=== PATIENT | male | born 1985 | race Hispanic/Latino ===

== ENCOUNTER 2017-06-14 17:18 | Inpatient (IN) | payer MEDICARE ==
[~2017-06-14] VITALS: Ht 170.2 cm; Wt 58.0 kg
[~2017-06-14 17:18] MED LIST: CARV3.12 PO; DOXA1TAB2 PO; LOSA50TA37 PO; METO50TA18 PO
[2017-06-14] MEDS ORDERED: PROMETHAZINE HCL 25 MG/ML 1ML AMPULE IM ONE (17:41)
[2017-06-14] MEDS ORDERED: LORAZEPAM 2 MG/ML 1 ML VIAL ONE (17:42)
[2017-06-14 17:45] LABS: BASOPHILS % (AUTO) 0.8 % (0.0-5.0); EOSINOPHILS % (AUTO) 1.1 % (0.0-8.0); LYMPHOCYTES % (AUTO) 33.7 % (21.0-51.0); MEAN CORPUSCULAR HEMOGLOBIN 18.7 pg (27.0-33.0); MEAN CORPUSCULAR HGB CONC 29.6 g/dL (32.0-36.0); MEAN CORPUSCULAR VOLUME 63.2 fL (79-99); MONOCYTES % (AUTO) 9.2 % (3.0-13.0); NEUTROPHILS % (AUTO) 55.2 % (40.0-77.0); NUCLEATED RED BLOOD CELLS 0.4 % (0.0-0.19); PLATELET COUNT (AUTO) 462 K/uL (130-400); RED BLOOD CELL COUNT(AUTO) 3.14 MIL/uL (4.50-6.20); RED CELL DISTRIBUTION WIDTH 22.2 % (11.0-15.5); WHITE BLOOD COUNT (AUTO) 8.1 K/uL (4.8-10.8)
[2017-06-14 17:51] LABS: CARBON DIOXIDE 25 mmol/L (21-32); CHLORIDE 105 mmol/L (101-111); CREATININE 0.8 mg/dL (0.5-1.5); GLOMERULAR FILTR. RATE CALC 120 mL/min (>60); GLUCOSE,RANDOM 129 mg/dL (70-105); POTASSIUM 3.7 mmol/L (3.5-5.1); SODIUM SERUM 143 mmol/L (136-145); UREA NITROGEN, BLOOD 17 mg/dL (7-18)
[2017-06-14] MEDS ORDERED: HYDROMORPHONE 1 MG/1 ML AMP ONE (17:51)
[2017-06-14 17:54] LABS: HEMATOCRIT 19.9 % (42-54)
[2017-06-14 17:56] LABS: ALANINE AMINOTRANSFERASE 18 U/L (12-78); ALBUMIN 3.6 g/dL (3.5-5.0); ASPARTATE AMINOTRANSFERASE 13 U/L (10-37); BILIRUBIN,TOTAL 0.2 mg/dL (0.2-1.0)
[2017-06-14 17:57] LABS: LIPASE < 50 U/L (114-286)
[2017-06-14] MEDS ORDERED: ONDANSETRON HCL MDV 20ML 2 MG/ML VIAL IVP PRN (19:15)
[2017-06-14 20:50] VITALS: BP 154/82
[2017-06-14] MEDS ORDERED: RISPERIDONE 1 MG TABLET PO SCH (21:00)
[2017-06-14] MEDS: MORPHINE SULFATE 15 MG TABLET.SA PO PRN (21:35)
[2017-06-14] MEDS ORDERED: PROM25TA7 PO (21:39)
[2017-06-14] MEDS ORDERED: HYDROMORPHONE 1 MG/1 ML AMP IVP ONE (22:30)
[2017-06-14] MEDS ORDERED: SODIUM CHLORIDE 0.9% 250 ML IV ONE (22:40)
[2017-06-14] MEDS ORDERED: NICOTINE 21 MG/ 24 HR PATCH TD ONE (23:00)
[2017-06-14] MEDS: LORAZEPAM 1 MG TABLET PO PRN (23:11)
[2017-06-14 23:35] VITALS: BP 125/78
[2017-06-15] MEDS: HYDROMORPHONE 1 MG/1 ML AMP IVP PRN ×2 (03:01→05:58)
[2017-06-15] MEDS: LORAZEPAM 1 MG TABLET PO PRN ×2 (03:01→09:27)
[2017-06-15 03:05] VITALS: BP 128/77
[2017-06-15] MEDS ORDERED: NALOXONE HCL 0.4 MG/1 ML ML IVP SCH (03:15)
[2017-06-15] MEDS ORDERED: ACETAMINOPHEN 325 MG TAB PO PRN (04:00)
[2017-06-15] MEDS ORDERED: ACETAMINOPHEN 325 MG TAB ONE (04:02)
[2017-06-15] MEDS ORDERED: SENN-175 PO (05:57)
[2017-06-15] MEDS ORDERED: LEVE750T10 PO (05:57)
[2017-06-15] MEDS ORDERED: MORP30TA71 PO (05:57)
[2017-06-15] MEDS ORDERED: PANT40TA25 PO (05:57)
[2017-06-15] MEDS ORDERED: LORA1TAB3 PO (05:57)
[2017-06-15] MEDS ORDERED: ZOLP10TA6 PO (05:57)
[2017-06-15] MEDS ORDERED: SERT50TA12 PO (05:57)
[2017-06-15] MEDS ORDERED: RISP0.5T19 PO (05:57)
[2017-06-15] MEDS ORDERED: RISPERIDONE 0.5 MG TABLET PO SCH (07:30)
[2017-06-15 07:50] VITALS: BP 145/94
[2017-06-15 07:54] LABS: BASOPHILS % (AUTO) 1.2 % (0.0-5.0); HEMATOCRIT 28.3 % (42-54); LYMPHOCYTES % (AUTO) 30.1 % (21.0-51.0); MEAN CORPUSCULAR HEMOGLOBIN 20.8 pg (27.0-33.0); MEAN CORPUSCULAR HGB CONC 30.7 g/dL (32.0-36.0); MEAN CORPUSCULAR VOLUME 67.8 fL (79-99); MONOCYTES % (AUTO) 12.1 % (3.0-13.0); NEUTROPHILS % (AUTO) 55.6 % (40.0-77.0); PLATELET COUNT (AUTO) 411 K/uL (130-400); RED BLOOD CELL COUNT(AUTO) 4.18 MIL/uL (4.50-6.20); RED CELL DISTRIBUTION WIDTH 26.8 % (11.0-15.5); WHITE BLOOD COUNT (AUTO) 8.3 K/uL (4.8-10.8)
[2017-06-15 08:02] LABS: CREATININE 0.7 mg/dL (0.5-1.5); POTASSIUM 3.8 mmol/L (3.5-5.1)
[2017-06-15] MEDS ORDERED: SENNOSIDES 8.6 MG TABLET PO SCH (09:00)
[2017-06-15] MEDS ORDERED: FAMOTIDINE 20MG TAB 20 MG TAB PO ONE (09:00)
[2017-06-15] MEDS ORDERED: AMLODIPINE BESYLATE 5 MG TAB PO SCH (09:00)
[2017-06-15] MEDS: MORPHINE SULFATE 15 MG TABLET.SA PO PRN (09:27)
[2017-06-15 11:35] VITALS: BP 148/102
[2017-06-15] MEDS ORDERED: ZOLPIDEM TARTRATE 5 MG TAB PO PRN (12:00)
[2017-06-15] MEDS ORDERED: SERTRALINE HCL 50 MG TABLET PO SCH (21:00)
[2017-06-15] MEDS ORDERED: LEVETIRACETAM 500 MG TABLET PO SCH (21:00)
[2017-06-16] MEDS ORDERED: PANTOPRAZOLE SODIUM 40 MG TABLET.DR PO SCH (09:00)
== END 2017-06-15 14:20 | disposition home or self-care (01) | DRG 812 ==
LOC: EDH 17:18 → EDHIP 18:49 → 4BH 20:03
PROVIDERS: ADMIT Family Medicine; ATTEND Family Medicine
PROC: 30233N1 Transfusion of Nonautologous Red Blood Cells into Peripheral Vein, Percutaneous Approach (ICD-10-PCS; principal; 2017-06-14)
DX: D64.9 Anemia, unspecified (principal); C25.9 Malignant neoplasm of pancreas, unspecified; F12.90 Cannabis use, unspecified, uncomplicated; G40.909 Epilepsy, unspecified, not intractable, without status epilepticus; I10 Essential (primary) hypertension; Z85.07 Personal history of malignant neoplasm of pancreas; Z88.8 Allergy status to other drugs, medicaments and biological substances
CPT/HCPCS: 36415; 36430; 80048; 80053; 83690; 85025; 85060; 86850; 86870; 86900; 86901; 86905; 86922; 87040; 88313; 93005; J1170; J2060; J2550; J7030; P9016

== ENCOUNTER 2017-08-04 11:33 | Observation (INO) | payer MEDICARE ==
[~2017-08-04] VITALS: Ht 170.2 cm; Wt 56.5 kg
[~2017-08-04 11:33] MED LIST changes: +LEVE750T10 PO; +LORA1TAB3 PO; +MORP30TA71 PO; +PANT40TA25 PO; +PROM25TA7 PO; +RISP0.5T19 PO; +SENN-175 PO; +SERT50TA12 PO; +ZOLP10TA6 PO
[2017-08-04] MEDS ORDERED: LORAZEPAM 2 MG/ML 1 ML VIAL ONE (12:36)
[2017-08-04] MEDS ORDERED: SODIUM CHLORIDE 0.9% 500ML 500 ML IV ONE (12:36)
[2017-08-04 12:58] LABS: BASOPHILS % (AUTO) 0.9 % (0.0-5.0); EOSINOPHILS % (AUTO) 1.9 % (0.0-8.0); HEMATOCRIT 21.5 % (42-54); LYMPHOCYTES % (AUTO) 30.2 % (21.0-51.0); MEAN CORPUSCULAR HEMOGLOBIN 21.3 pg (27.0-33.0); MEAN CORPUSCULAR HGB CONC 29.9 g/dL (32.0-36.0); MEAN CORPUSCULAR VOLUME 71.2 fL (79-99); MONOCYTES % (AUTO) 10.2 % (3.0-13.0); NEUTROPHILS % (AUTO) 56.8 % (40.0-77.0); NUCLEATED RED BLOOD CELLS 0.5 % (0.0-0.19); PLATELET COUNT (AUTO) 413 K/uL (130-400); RED BLOOD CELL COUNT(AUTO) 3.03 MIL/uL (4.50-6.20); RED CELL DISTRIBUTION WIDTH 26.1 % (11.0-15.5)
[2017-08-04 13:19] LABS: CARBON DIOXIDE 27 mmol/L (21-32); CHLORIDE 107 mmol/L (101-111); CREATININE 0.6 mg/dL (0.5-1.5); GLOMERULAR FILTR. RATE CALC 167 mL/min (>60); GLUCOSE,RANDOM 77 mg/dL (70-105); POTASSIUM 4.4 mmol/L (3.5-5.1); SODIUM SERUM 140 mmol/L (136-145); UREA NITROGEN, BLOOD 9 mg/dL (7-18)
[2017-08-04 13:25] LABS: ALANINE AMINOTRANSFERASE 21 U/L (12-78); ALBUMIN 3.3 g/dL (3.5-5.0); AMYLASE 20 U/L (25-115); ASPARTATE AMINOTRANSFERASE 24 U/L (10-37); BILIRUBIN,TOTAL 0.1 mg/dL (0.2-1.0); TOTAL PROTEIN, SERUM 6.2 g/dL (6.0-8.3)
[2017-08-04 13:38] LABS: LIPASE < 50 U/L (114-286)
[2017-08-04] MEDS ORDERED: MORPHINE SULFATE 4 MG/1ML SYG ONE (20:51)
[2017-08-04 21:50] VITALS: BP 134/81
[2017-08-04] MEDS ORDERED: SODIUM CHLORIDE 0.9% 250 ML IV ONE (22:42)
[2017-08-04 23:00] VITALS: BP 101/64
[2017-08-05] MEDS: MORPHINE SULFATE 4 MG/1ML SYG IV PRN ×4 (01:20→21:19)
[2017-08-05 03:00] VITALS: BP 116/67
[2017-08-05 04:57] LABS: BASOPHILS % (AUTO) 1.2 % (0.0-5.0); EOSINOPHILS % (AUTO) 2.4 % (0.0-8.0); HEMATOCRIT 28.7 % (42-54); LYMPHOCYTES % (AUTO) 35.7 % (21.0-51.0); MEAN CORPUSCULAR HEMOGLOBIN 23.7 pg (27.0-33.0); MEAN CORPUSCULAR HGB CONC 32.3 g/dL (32.0-36.0); MEAN CORPUSCULAR VOLUME 73.4 fL (79-99); MONOCYTES % (AUTO) 10.4 % (3.0-13.0); NEUTROPHILS % (AUTO) 50.3 % (40.0-77.0); NUCLEATED RED BLOOD CELLS 0.4 % (0.0-0.19); PLATELET COUNT (AUTO) 449 K/uL (130-400); RED CELL DISTRIBUTION WIDTH 24.6 % (11.0-15.5); WHITE BLOOD COUNT (AUTO) 6.5 K/uL (4.8-10.8)
[2017-08-05 05:19] LABS: CREATININE 0.9 mg/dL (0.5-1.5); POTASSIUM 4.2 mmol/L (3.5-5.1)
[2017-08-05 07:00] VITALS: BP 114/78
[2017-08-05] MEDS: LORAZEPAM 1 MG TABLET PO PRN ×2 (10:01→20:36)
[2017-08-05 11:00] VITALS: BP 124/84
[2017-08-05 15:40] VITALS: BP 118/77
[2017-08-05 19:38] VITALS: BP 122/75
[2017-08-05] MEDS ORDERED: METH10TA2 PO (20:35)
[2017-08-05] MEDS ORDERED: ONDA4TAB10 PO (20:36)
[2017-08-05] MEDS ORDERED: BENZ-51 PO (20:36)
[2017-08-05] MEDS ORDERED: FENT-77 TD (20:36)
[2017-08-05] MEDS ORDERED: MORP60CA19 PO (20:36)
[2017-08-05] MEDS ORDERED: ZOLPIDEM TARTRATE 5 MG TAB PO PRN (21:45)
[2017-08-05] MEDS ORDERED: ONDANSETRON ODT 4 MG TAB PO PRN (21:45)
[2017-08-05] MEDS ORDERED: BENZONATATE 100 MG CAPSULE PO PRN (21:45)
[2017-08-06] VITALS: BP 108/66
[2017-08-06 04:00] VITALS: BP 110/71
[2017-08-06 05:31] LABS: BASOPHILS % (AUTO) 0.9 % (0.0-5.0); EOSINOPHILS % (AUTO) 2.9 % (0.0-8.0); HEMATOCRIT 28.6 % (42-54); LYMPHOCYTES % (AUTO) 35.6 % (21.0-51.0); MEAN CORPUSCULAR HEMOGLOBIN 23.1 pg (27.0-33.0); MEAN CORPUSCULAR HGB CONC 31.7 g/dL (32.0-36.0); MEAN CORPUSCULAR VOLUME 72.7 fL (79-99); MONOCYTES % (AUTO) 13.1 % (3.0-13.0); NEUTROPHILS % (AUTO) 47.5 % (40.0-77.0); NUCLEATED RED BLOOD CELLS 0.4 % (0.0-0.19); PLATELET COUNT (AUTO) 459 K/uL (130-400); RED BLOOD CELL COUNT(AUTO) 3.93 MIL/uL (4.50-6.20); RED CELL DISTRIBUTION WIDTH 24.8 % (11.0-15.5); WHITE BLOOD COUNT (AUTO) 6.4 K/uL (4.8-10.8)
[2017-08-06 05:34] LABS: CREATININE 0.9 mg/dL (0.5-1.5); POTASSIUM 4.1 mmol/L (3.5-5.1)
[2017-08-06] MEDS: MORPHINE SULFATE 4 MG/1ML SYG IV PRN (06:31)
[2017-08-06 07:00] VITALS: BP 134/74
[2017-08-06] MEDS ORDERED: PANTOPRAZOLE SODIUM 40 MG TABLET.DR PO SCH (09:00)
[2017-08-06] MEDS ORDERED: LEVETIRACETAM 250 MG TABLET PO SCH (09:00)
[2017-08-06] MEDS ORDERED: SENNOSIDES 8.6 MG TABLET PO SCH (09:00)
[2017-08-06] MEDS ORDERED: CARVEDILOL 3.125 MG TABLET PO SCH (09:00)
[2017-08-06 11:00] VITALS: BP 114/72
[2017-08-06] MEDS ORDERED: NON-FORMULARY MEDICATION 1 EACH (Fentanyl 1 EACH) TD SCH (13:45)
[2017-08-06] MEDS ORDERED: PROMETHAZINE HCL 25 MG TABLET PO PRN (14:00)
[2017-08-06 15:41] VITALS: BP 110/70
[2017-08-06] MEDS ORDERED: DOXAZOSIN MESYLATE 2 MG TABLET PO SCH (21:00)
[2017-08-06] MEDS ORDERED: MORPHINE SULFATE 15 MG TABLET.SA PO SCH (21:00)
== END 2017-08-06 17:30 | disposition home or self-care (01) ==
LOC: EDH 11:33 → EDHIP 16:30 → 3BH 21:33
PROVIDERS: ADMIT Internal Medicine Nephrology; ATTEND Internal Medicine Nephrology
DX: D50.9 Iron deficiency anemia, unspecified (principal); D13.6 Benign neoplasm of pancreas; C25.9 Malignant neoplasm of pancreas, unspecified; Z85.07 Personal history of malignant neoplasm of pancreas; Z83.3 Family history of diabetes mellitus; Z82.49 Family history of ischemic heart disease and other diseases of the circulatory system; I10 Essential (primary) hypertension; D3A.8 Other benign neuroendocrine tumors; F41.9 Anxiety disorder, unspecified
CPT/HCPCS: 36415 ×3; 80048 ×2; 80053; 82150; 83690; 85025 ×3; 86850; 86900; 86901; 86905; 86922; 96374; 96376 ×2; 99285; G0378 ×49; J2060; J2270 ×6; J7030; J7040; P9016 ×2

== ENCOUNTER 2018-07-24 08:59 | Emergency (ER) | payer MEDICARE ==
[~2018-07-24 08:59] MED LIST changes: +BENZ-51 PO; +FENT-77 TD; -LOSA50TA37 PO; +METH10TA2 PO; -METO50TA18 PO; -MORP30TA71 PO; +MORP60CA19 PO; +ONDA4TAB10 PO; -RISP0.5T19 PO; -SENN-175 PO; +SENN8.6T32 PO; -SERT50TA12 PO
[2018-07-24] MEDS ORDERED: HYDROMORPHONE 1 MG/1 ML AMP ONE ×3 (09:25→15:18)
[2018-07-24] MEDS ORDERED: PROMETHAZINE HCL 25 MG/ML 1ML AMPULE IM ONE (09:39)
[2018-07-24 09:46] LABS: BASOPHILS % (AUTO) 1.2 % (0.0-5.0); HEMATOCRIT 31.5 % (42-54); LYMPHOCYTES % (AUTO) 29.4 % (21.0-51.0); MEAN CORPUSCULAR HEMOGLOBIN 23.5 pg (27.0-33.0); MEAN CORPUSCULAR HGB CONC 30.8 g/dL (32.0-36.0); MEAN CORPUSCULAR VOLUME 76.3 fL (79-99); MONOCYTES % (AUTO) 9.5 % (3.0-13.0); NEUTROPHILS % (AUTO) 58.9 % (40.0-77.0); NUCLEATED RED BLOOD CELLS 0.1 % (0.0-0.19); PLATELET COUNT (AUTO) 426 K/uL (130-400); RED BLOOD CELL COUNT(AUTO) 4.13 MIL/uL (4.50-6.20); RED CELL DISTRIBUTION WIDTH 19.9 % (11.0-15.5); WHITE BLOOD COUNT (AUTO) 5.1 K/uL (4.8-10.8)
[2018-07-24 09:57] LABS: CARBON DIOXIDE 28 mmol/L (21-32); CHLORIDE 104 mmol/L (101-111); CREATININE 0.7 mg/dL (0.5-1.5); GLOMERULAR FILTR. RATE CALC 139 mL/min (>60); GLUCOSE,RANDOM 84 mg/dL (70-105); POTASSIUM 4.3 mmol/L (3.5-5.1); SODIUM SERUM 140 mmol/L (136-145); UREA NITROGEN, BLOOD 14 mg/dL (7-18)
[2018-07-24 10:01] LABS: ALANINE AMINOTRANSFERASE 30 U/L (12-78); ALBUMIN 3.9 g/dL (3.5-5.0); ASPARTATE AMINOTRANSFERASE 30 U/L (10-37); BILIRUBIN,DIRECT 0.1 mg/dL (0.0-0.3); BILIRUBIN,TOTAL 0.4 mg/dL (0.2-1.0); TOTAL PROTEIN, SERUM 7.1 g/dL (6.0-8.3)
[2018-07-24 10:05] LABS: LIPASE < 50 U/L (114-286)
[2018-07-24] MEDS ORDERED: HALOPERIDOL LACTATE 5 MG/ML VIAL ONE (11:04)
[2018-07-24] MEDS ORDERED: HYDROMORPHONE 1 MG/1 ML AMP IVP PRN ×2 (15:00)
[2018-07-24] MEDS ORDERED: LORAZEPAM 2 MG/ML 1 ML VIAL IVP PRN (15:00)
[2018-07-24] MEDS ORDERED: LORAZEPAM 2 MG/ML 1 ML VIAL ONE (15:17)
== END 2018-07-24 18:28 | disposition home or self-care (01) ==
LOC: EDH 08:59
DX: K52.9 Noninfective gastroenteritis and colitis, unspecified (principal); Z85.07 Personal history of malignant neoplasm of pancreas; Z88.1 Allergy status to other antibiotic agents; Z88.6 Allergy status to analgesic agent
CPT/HCPCS: 36415; 74176; 80048; 80076; 83690; 85025; 96365; 96366; 96375; 96376; 99285; J1170 ×3; J1630; J2060; J2550

== ENCOUNTER 2018-09-13 13:57 | Inpatient (IN) | payer OTHER | END 2018-09-15 19:30 | disposition hospice, home (50) | LOC: 3CH 13:57 ==

== ENCOUNTER 2019-10-25 13:14 | Emergency (ER) | payer MEDICARE ==
[~2019-10-25 13:14] MED LIST changes: +ALPR-410 PO; +BACL10TA PO; -BENZ-51 PO; -CARV3.12 PO; +DICY10CA13 PO; -DOXA1TAB2 PO; -FENT-77 TD; +HYDR5TAB14 PO; +LOPE2CAP PO; -LORA1TAB3 PO; -METH10TA2 PO; +MORP15TA70 PO; -MORP60CA19 PO; -ONDA4TAB10 PO; +SENN1TAB53 PO; -SENN8.6T32 PO; +SIME-12 PO; +SIME125C PO; +TRAZ-187 PO; +TYL3 PO; -ZOLP10TA6 PO
[2019-10-25] MEDS ORDERED: HALOPERIDOL LACTATE 5 MG/ML VIAL ONE (14:22)
[2019-10-25] MEDS ORDERED: HYDROMORPHONE HCL 0.5 MG/0.5 ML ML ONE (14:23)
[2019-10-25 14:24] LABS: BASOPHILS % (AUTO) 1.1 % (0.0-5.0); MEAN CORPUSCULAR VOLUME 63.6 fL (79-99)
[2019-10-25] MEDS ORDERED: SODIUM CHLORIDE 0.9% 1000ML 1,000 ML IV ONE (14:24)
[2019-10-25 14:30] LABS: EOSINOPHILS % (AUTO) 1.6 % (0.0-8.0); HEMATOCRIT 28.5 % (42-54); LYMPHOCYTES % (AUTO) 22.8 % (21.0-51.0); MEAN CORPUSCULAR HEMOGLOBIN 15.8 pg (27.0-33.0); MEAN CORPUSCULAR HGB CONC 24.9 g/dL (32.0-36.0); MONOCYTES % (AUTO) 13.8 % (3.0-13.0); NEUTROPHILS % (AUTO) 60.5 % (40.0-77.0); NUCLEATED RED BLOOD CELLS 2.9 % (0.0-0.19); RED BLOOD CELL COUNT(AUTO) 4.48 MIL/uL (4.50-6.20); RED CELL DISTRIBUTION WIDTH 23.7 % (11.0-15.5); WHITE BLOOD COUNT (AUTO) 8.4 K/uL (4.8-10.8)
[2019-10-25 14:31] LABS: PLATELET COUNT (AUTO) 1015 K/uL (130-400)
[2019-10-25 14:37] LABS: CARBON DIOXIDE 25 mmol/L (21-32); CHLORIDE 102 mmol/L (101-111); GLOMERULAR FILTR. RATE CALC 91 mL/min (>60); GLUCOSE,RANDOM 82 mg/dL (70-105); POTASSIUM 4.8 mmol/L (3.5-5.1); SODIUM SERUM 137 mmol/L (136-145); UREA NITROGEN, BLOOD 14 mg/dL (7-18)
[2019-10-25 14:39] LABS: INR 0.96 (0.85-1.15); PROTHROMBIN TIME 10.4 SEC (9.6-11.6)
[2019-10-25 14:41] LABS: ALANINE AMINOTRANSFERASE 33 U/L (12-78); ALBUMIN 3.8 g/dL (3.5-5.0); ASPARTATE AMINOTRANSFERASE 58 U/L (10-37); BILIRUBIN,DIRECT 0.1 mg/dL (0.0-0.3); BILIRUBIN,TOTAL 0.5 mg/dL (0.2-1.0); CREATINE KINASE, TOTAL 91 U/L (21-232); LIPASE < 50 U/L (114-286); TOTAL PROTEIN, SERUM 8.2 g/dL (6.0-8.3)
[2019-10-25 15:22] LABS: PLATELET MORPHOLOGY COMMENT MARKED INCREASE
[2019-10-25 15:37] LABS: APPEARANCE,URINE Clear (CLEAR); BILIRUBIN,URINE Negative (NEGATIVE); COLOR,URINE Yellow (YELLOW); GLUCOSE, URINE (UA) Negative (NEGATIVE); KETONES,URINE Negative (NEGATIVE); LEUKOCYTE ESTERASE ,URINE Negative (NEGATIVE); NITRATE,URINE Negative (NEGATIVE); OCCULT BLOOD,URINE Negative (NEGATIVE); PH,URINE 6.5 (5.0-8.0); PROTEIN,URINE POS 1+ mg/dL (NEGATIVE)
[2019-10-25] MEDS ORDERED: LORAZEPAM 2 MG/ML 1 ML VIAL ONE (15:40)
[2019-10-25 15:44] LABS: AMPHET/METH SCREEN,URINE NEGATIVE (NEGATIVE); BARBITURATE SCREEN, URINE NEGATIVE (NEGATIVE); BENZODIAZEPINES SCREEN,URINE NEGATIVE (NEGATIVE); CANNABINOID SCREEN,URINE POSITIVE (NEGATIVE); COCAINE SCREEN,URINE NEGATIVE (NEGATIVE); OPIATE SCREEN,URINE POSITIVE (NEGATIVE); PHENCYCLIDINE SCREEN,URINE NEGATIVE (NEGATIVE)
[2019-10-25 15:54] LABS: BACTERIA,URINE Few /HPF (None Seen); MUCUS,URINE Few LPF (None Seen); RBC,URINE 0-1 /HPF (0-1); SQUAMOUS EPITHELIAL CELL,UR Few /HPF (0-2)
== END 2019-10-25 18:35 | disposition left against medical advice (07) ==
LOC: EDH 13:14
DX: D64.9 Anemia, unspecified (principal); C25.9 Malignant neoplasm of pancreas, unspecified; C79.9 Secondary malignant neoplasm of unspecified site; Z88.1 Allergy status to other antibiotic agents; Z88.8 Allergy status to other drugs, medicaments and biological substances; Z72.0 Tobacco use
CPT/HCPCS: 36415; 71045; 74176; 80048; 80076; 80305; 81001; 82550; 83690; 85025; 85610; 85730; 93005; 96361; 96374; 96375; 99285; J1170; J1630; J2060; J7030